=== PATIENT | male | born 1955 | race African-American/Black ===

== ENCOUNTER → 2017-01-31 | Outpatient (CLI) | payer MEDICARE, MEDICAID | END | disposition home or self-care (01) | LOC: RAD 08:42 | PROVIDERS: ATTEND Neurological Surgery | DX: M48.56XA Collapsed vertebra, not elsewhere classified, lumbar region, initial encounter for fracture (principal) | CPT/HCPCS: 72114 ==

== ENCOUNTER 2018-04-27 05:23 | Inpatient (IN) | payer MEDICARE, MEDICAID ==
[~2018-04-27] VITALS: Ht 182.9 cm; Wt 89.8 kg
[2018-04-27] VITALS (31 sets, daily range): BP systolic 112–169; BP diastolic 45–86
[2018-04-27] MEDS ORDERED: GELATIN SPONGE,ABSORBABLE 12-7MM SPONGE ONE ×2 (06:51→09:14)
[2018-04-27] MEDS ORDERED: THROMBIN (BOVINE) 5000 UNITS/VIAL TOP ONE ×2 (06:51→06:52)
[2018-04-27] MEDS ORDERED: BENA1TAB18 PO (06:52)
[2018-04-27] MEDS ORDERED: LIDOCAINE HCL/EPINEPHRINE 1%-EPI 1:100,000 20 ML VIAL ONE (06:52)
[2018-04-27] MEDS ORDERED: GLIP1TAB5 PO (06:52)
[2018-04-27] MEDS ORDERED: HYDR-3282 PO (06:52)
[2018-04-27] MEDS ORDERED: BACITRACIN 50,000 UNITS/VIAL ONE (06:52)
[2018-04-27] MEDS ORDERED: ASPI-1159 PO (06:52)
[2018-04-27] MEDS ORDERED: HYDR-4009 PO (06:52)
[2018-04-27] MEDS ORDERED: MIDAZOLAM HCL 2 MG/2 ML VIAL ONE (06:57)
[2018-04-27] MEDS ORDERED: ROCURONIUM BROMIDE 10MG/ML VIAL 5ML IV ONE (06:57)
[2018-04-27] MEDS ORDERED: NEOSTIGMINE METHYLSULFATE 1MG/ML 10 ML VIAL ONE (06:57)
[2018-04-27] MEDS ORDERED: FENTANYL CITRATE/PF 50MCG/ML 5ML VIAL ONE (06:57)
[2018-04-27] MEDS ORDERED: PROPOFOL 200MG/20ML VIAL IV ONE (06:57)
[2018-04-27] MEDS ORDERED: GLYCOPYRROLATE 0.2 MG/ML 2ML VIAL ONE (07:00)
[2018-04-27] MEDS: LACTATED RINGERS 1,000 ML IV SCH ×2 (07:17→19:52)
[2018-04-27] MEDS ORDERED: ACETAMINOPHEN 325MG TABLET PO PRN (07:45)
[2018-04-27] MEDS ORDERED: ONDANSETRON HCL 4MG/2ML INJ IV PRN ×2 (07:45→09:45)
[2018-04-27] MEDS ORDERED: HYDRALAZINE 20MG/ML VIAL ONE (08:14)
[2018-04-27] MEDS ORDERED: VECURONIUM BROMIDE 10 MG/VIAL IV ONE (08:25)
[2018-04-27] MEDS ORDERED: LABETALOL HCL 5MG/ML VIAL 20ML IV ONE (09:30)
[2018-04-27] MEDS ORDERED: MEPERIDINE HCL/PF 25MG/ML CPJ IV PRN (09:45)
[2018-04-27] MEDS ORDERED: HYDROMORPHONE HCL/PF 2MG/ML CPJ IV PRN (09:45)
[2018-04-27] MEDS ORDERED: FENTANYL CITRATE/PF 50MCG/ML 2ML VIAL IV PRN (09:45)
[2018-04-27] MEDS ORDERED: MORPHINE SULFATE 4 MG/ML CPJ (NOT FOR IM USE) IV PRN (09:45)
[2018-04-27] MEDS ORDERED: DEXTROSE 50% WATER 50ML SYRINGE IV PRN (11:00)
[2018-04-27] MEDS ORDERED: BISACODYL 5MG TABLET PO PRN (11:00)
[2018-04-27] MEDS ORDERED: DIPHENHYDRAMINE INJ IV PRN (11:15)
[2018-04-27] MEDS ORDERED: PANTOPRAZOLE SODIUM 40 MG/VIAL IV NR (11:15)
[2018-04-27] MEDS ORDERED: NALOXONE INJ IV PRN (11:15)
[2018-04-27] MEDS: HYDROMORPHONE PCA 10MG/50ML IV PRN (11:24)
[2018-04-27] MEDS: DEXT 5%/LACTATED RINGERS 1,000 ML IV SCH ×3 (11:25→23:27)
[2018-04-27] MEDS: BLOOD SUGAR DIAGNOSTIC STRIP TEST SCH ×3 (11:25→21:00)
[2018-04-27] MEDS ORDERED: IPRATROPIUM/ALBUTEROL 0.5-3(2.5)MG/3ML NEB HHN PRN (11:30)
[2018-04-27] MEDS ORDERED: NICOTINE 21MG PATCH TD SCH (11:30)
[2018-04-27] MEDS: ONDANSETRON INJ IV PRN ×2 (11:55→23:26)
[2018-04-27] MEDS: INSULIN LISPRO 100 UNITS/ML SUBCUT SCH ×3 (11:59→22:14)
[2018-04-27] MEDS ORDERED: NICARDIPINE 100 MG in SODIUM CHLORIDE 0.9% 60 ML IV PRN (12:00)
[2018-04-27] MEDS: IPRATROPIUM/ALBUTEROL 0.5-3(2.5)MG/3ML NEB HHN SCH ×2 (13:55→20:55)
[2018-04-27] MEDS ORDERED: CEFAZOLIN 1000MG PREMIX 50 ML IV SCH ×3 (14:00→19:00)
[2018-04-27] MEDS ORDERED: CEFAZOLIN SODIUM 1000MG/VIAL IV SCH (14:00)
[2018-04-27] MEDS: CEFAZOLIN 1000MG PREMIX 50 ML IV SCH (19:52)
[2018-04-28] VITALS (47 sets, daily range): BP systolic 100–167; BP diastolic 41–108
[2018-04-28] MEDS: IPRATROPIUM/ALBUTEROL 0.5-3(2.5)MG/3ML NEB HHN SCH ×4 (01:19→19:55)
[2018-04-28] MEDS: CEFAZOLIN 1000MG PREMIX 50 ML IV SCH ×3 (02:48→18:16)
[2018-04-28 05:34] LABS: CHLORIDE 100 mEq/L (98-107)
[2018-04-28 05:48] LABS: HEMATOCRIT. 32.4 % (42.0-52.0); HEMOGLOBIN. 10.6 g/dL (14.0-18.0); MEAN CORPUSCULAR HEMOGLOBIN 28.2 pg (28.0-32.0); MEAN CORPUSCULAR VOLUME 86.1 fL (80.0-94.0); MEAN PLATELET VOLUME 7.9 fl (7.4-10.4); PLATELET 417 x1000/uL (130-400); RED BLOOD CELL COUNT 3.77 mill/uL (4.7-6.1); RED CELL DISTRIBUTION WIDTH 13.9 % (11.6-14.6)
[2018-04-28] MEDS: BLOOD SUGAR DIAGNOSTIC STRIP TEST SCH ×4 (06:33→21:17)
[2018-04-28] MEDS: INSULIN LISPRO 100 UNITS/ML SUBCUT SCH ×4 (06:33→21:18)
[2018-04-28 08:08] LABS: PLATELET ESTIMATE SLIGHTLY INCREASED
[2018-04-28] MEDS: NICOTINE 21MG PATCH TD SCH (08:17)
[2018-04-28] MEDS: PANTOPRAZOLE SODIUM 40 MG/VIAL IV SCH (08:17)
[2018-04-28] MEDS: ONDANSETRON INJ IV PRN ×2 (08:17→18:54)
[2018-04-28] MEDS: DOCUSATE SODIUM 100MG CAPSULE PO SCH ×2 (08:17→16:54)
[2018-04-28] MEDS: HYDROMORPHONE PCA 10MG/50ML IV PRN (09:36)
[2018-04-28] MEDS: DEXT 5%/LACTATED RINGERS 1,000 ML IV SCH ×2 (11:51→21:18)
[2018-04-28] MEDS ORDERED: POTASSIUM CHLORIDE 20MEQ TABLET SR PO NR (15:00)
[2018-04-29] VITALS (28 sets, daily range): BP systolic 131–158; BP diastolic 62–94
[2018-04-29] MEDS: IPRATROPIUM/ALBUTEROL 0.5-3(2.5)MG/3ML NEB HHN SCH ×4 (01:44→21:33)
[2018-04-29] MEDS: CEFAZOLIN 1000MG PREMIX 50 ML IV SCH ×2 (02:10→11:00)
[2018-04-29 05:21] LABS: HEMATOCRIT. 31.6 % (42.0-52.0); HEMOGLOBIN. 10.4 g/dL (14.0-18.0); MEAN CORPUSCULAR HEMOGLOBIN 28.3 pg (28.0-32.0); MEAN CORPUSCULAR VOLUME 85.9 fL (80.0-94.0); MEAN PLATELET VOLUME 8.1 fl (7.4-10.4); PLATELET 390 x1000/uL (130-400); RED BLOOD CELL COUNT 3.67 mill/uL (4.7-6.1); RED CELL DISTRIBUTION WIDTH 14.3 % (11.6-14.6)
[2018-04-29 05:33] LABS: CHLORIDE 103 mEq/L (98-107)
[2018-04-29] MEDS: DEXT 5%/LACTATED RINGERS 1,000 ML IV SCH ×3 (05:47→15:45)
[2018-04-29] MEDS: BLOOD SUGAR DIAGNOSTIC STRIP TEST SCH ×4 (06:42→21:44)
[2018-04-29] MEDS: INSULIN LISPRO 100 UNITS/ML SUBCUT SCH ×4 (06:43→17:54)
[2018-04-29] MEDS: PANTOPRAZOLE SODIUM 40 MG/VIAL IV SCH (09:35)
[2018-04-29] MEDS: NICOTINE 21MG PATCH TD SCH (09:35)
[2018-04-29] MEDS: DOCUSATE SODIUM 100MG CAPSULE PO SCH ×2 (09:35→17:00)
[2018-04-29] MEDS ORDERED: POTASSIUM CHLORIDE 20MEQ TABLET SR PO NR (10:30)
[2018-04-29 11:30] LABS: PLATELET ESTIMATE NORMAL
[2018-04-29] MEDS ORDERED: ONDANSETRON HCL 4MG/2ML INJ IV PRN (13:15)
[2018-04-30] VITALS: BP 136/75
[2018-04-30] MEDS: INSULIN LISPRO 100 UNITS/ML SUBCUT SCH ×5 (00:14→21:00)
[2018-04-30] MEDS: DEXT 5%/LACTATED RINGERS 1,000 ML IV SCH ×2 (00:35→09:41)
[2018-04-30] MEDS: CEFAZOLIN 1000MG PREMIX 50 ML IV SCH (00:35)
[2018-04-30] MEDS: IPRATROPIUM/ALBUTEROL 0.5-3(2.5)MG/3ML NEB HHN SCH ×4 (02:30→21:41)
[2018-04-30 04:00] VITALS: BP 125/61
[2018-04-30] MEDS: BLOOD SUGAR DIAGNOSTIC STRIP TEST SCH ×4 (07:14→21:53)
[2018-04-30] MEDS ORDERED: BENA5TAB6 MT (07:40)
[2018-04-30 08:00] VITALS: BP 143/62
[2018-04-30] MEDS: DOCUSATE SODIUM 100MG CAPSULE PO SCH ×3 (09:00→17:00)
[2018-04-30] MEDS: NICOTINE 21MG PATCH TD SCH (09:34)
[2018-04-30 10:51] LABS: BASOPHILS % 0.5 % (0.0-2.0); EOSINOPHILS % 4.8 % (0.0-5.0); HEMATOCRIT. 29.4 % (42.0-52.0); HEMOGLOBIN. 9.8 g/dL (14.0-18.0); LYMPHOCYTES % 9.9 % (20.0-50.0); MEAN CORPUSCULAR HEMOGLOBIN 28.6 pg (28.0-32.0); MEAN CORPUSCULAR VOLUME 85.8 fL (80.0-94.0); MONOCYTES % 12.7 % (2.0-8.0); NEUTROPHILS % 72.1 % (40.0-76.0); PLATELET 391 x1000/uL (130-400); RED BLOOD CELL COUNT 3.43 mill/uL (4.7-6.1); RED CELL DISTRIBUTION WIDTH 14.6 % (11.6-14.6)
[2018-04-30 11:13] LABS: CHLORIDE 102 mEq/L (98-107)
[2018-04-30 12:00] VITALS: BP 189/57
[2018-04-30] MEDS: HYDROCODONE/APAP 7.5/325MG 1 TAB TABLET PO PRN (14:07)
[2018-04-30 16:00] VITALS: BP 144/60
[2018-04-30 20:00] VITALS: BP 139/79
[2018-05-01] VITALS: BP 110/60
[2018-05-01] MEDS: IPRATROPIUM/ALBUTEROL 0.5-3(2.5)MG/3ML NEB HHN SCH ×3 (01:56→15:40)
[2018-05-01] MEDS: HYDROCODONE/APAP 7.5/325MG 1 TAB TABLET PO PRN ×2 (03:21→08:53)
[2018-05-01 04:00] VITALS: BP 126/63
[2018-05-01 06:52] LABS: BASOPHILS % 0.8 % (0.0-2.0); EOSINOPHILS % 5.5 % (0.0-5.0); HEMOGLOBIN. 9.5 g/dL (14.0-18.0); LYMPHOCYTES % 15.9 % (20.0-50.0); MEAN CORPUSCULAR VOLUME 85.2 fL (80.0-94.0); MEAN PLATELET VOLUME 8.1 fl (7.4-10.4); MONOCYTES % 12.9 % (2.0-8.0); NEUTROPHILS % 64.9 % (40.0-76.0); PLATELET 431 x1000/uL (130-400); RED BLOOD CELL COUNT 3.29 mill/uL (4.7-6.1); RED CELL DISTRIBUTION WIDTH 14.1 % (11.6-14.6)
[2018-05-01] MEDS: BLOOD SUGAR DIAGNOSTIC STRIP TEST SCH ×2 (07:20→12:20)
[2018-05-01 08:00] VITALS: BP 147/73
[2018-05-01 08:04] LABS: CHLORIDE 102 mEq/L (98-107)
[2018-05-01] MEDS ORDERED: POTASSIUM CHLORIDE 20MEQ TABLET SR PO SCH ×2 (08:30)
[2018-05-01] MEDS: DOCUSATE SODIUM 100MG CAPSULE PO SCH (08:54)
[2018-05-01] MEDS: NICOTINE 21MG PATCH TD SCH (08:54)
[2018-05-01] MEDS: INSULIN LISPRO 100 UNITS/ML SUBCUT SCH ×2 (09:02→12:37)
[2018-05-01 12:00] VITALS: BP 132/62
[2018-05-01 15:43] VITALS: BP 132/62
== END 2018-05-01 16:05 | DRG 453 ==
LOC: OR 05:23 → MICUNO 05:24 → 6EST 04-29 12:18
PROVIDERS: ADMIT Internal Medicine; ATTEND Internal Medicine
PROC: 0SG0071 Fusion of Lumbar Vertebral Joint with Autologous Tissue Substitute, Posterior Approach, Posterior Column, Open Approach (ICD-10-PCS; principal; 2018-04-27)
PROC: 0SG00A0 Fusion of Lumbar Vertebral Joint with Interbody Fusion Device, Anterior Approach, Anterior Column, Open Approach (ICD-10-PCS; 2018-04-27)
PROC: 0SP004Z Removal of Internal Fixation Device from Lumbar Vertebral Joint, Open Approach (ICD-10-PCS; 2018-04-27)
PROC: 0ST20ZZ Resection of Lumbar Vertebral Disc, Open Approach (ICD-10-PCS; 2018-04-27)
PROC: 01NB0ZZ Release Lumbar Nerve, Open Approach (ICD-10-PCS; 2018-04-27)
DX: M47.26 Other spondylosis with radiculopathy, lumbar region (principal); R53.2 Functional quadriplegia; J84.9 Interstitial pulmonary disease, unspecified; E44.0 Moderate protein-calorie malnutrition; M48.061 Spinal stenosis, lumbar region without neurogenic claudication; E11.9 Type 2 diabetes mellitus without complications; I10 Essential (primary) hypertension; D64.9 Anemia, unspecified; E87.6 Hypokalemia; M43.16 Spondylolisthesis, lumbar region; G89.4 Chronic pain syndrome; D72.829 Elevated white blood cell count, unspecified; F17.210 Nicotine dependence, cigarettes, uncomplicated; M77.30 Calcaneal spur, unspecified foot; Z82.49 Family history of ischemic heart disease and other diseases of the circulatory system; Z83.3 Family history of diabetes mellitus; Z88.8 Allergy status to other drugs, medicaments and biological substances; Z90.49 Acquired absence of other specified parts of digestive tract; Z68.26 Body mass index [BMI] 26.0-26.9, adult; Z80.9 Family history of malignant neoplasm, unspecified; Z98.1 Arthrodesis status
CPT/HCPCS: 36415; 72100; 80048; 82962; 83735; 86850; 86900; 88300; 88304; 88311; 94640; 95863; 95925; 95926; 97116; 97163; 97166; 97530; 97535; 97760; C1713; C9113; J0360; J0690; J1170; J1815; J2250; J2405; J2704; J2710; J3010; J3490; J7121; J7620

== ENCOUNTER 2018-05-01 16:59 | Inpatient (IN) | payer MEDICARE, MEDICAID ==
[~2018-05-01] VITALS: Ht 182.9 cm; Wt 83.9 kg
[2018-05-01 16:20] VITALS: BP 140/70
[~2018-05-01 16:59] MED LIST: ASPI-1159 PO; BENA1TAB18 PO; BENA5TAB6 MT; GLIP1TAB5 PO; HYDR-3282 PO; HYDR-4009 PO
[2018-05-01] MEDS ORDERED: DEXTROSE 50% WATER 50ML SYRINGE IV PRN (17:45)
[2018-05-01] MEDS ORDERED: ONDANSETRON HCL 4MG TABLET PO PRN (17:45)
[2018-05-01] MEDS ORDERED: DIPHENHYDRAMINE 25MG CAPSULE PO PRN (17:45)
[2018-05-01] MEDS ORDERED: IPRATROPIUM/ALBUTEROL 0.5-3(2.5)MG/3ML NEB HHN PRN (17:45)
[2018-05-01] MEDS ORDERED: BISACODYL 5MG TABLET PO PRN (17:45)
[2018-05-01 20:00] VITALS: BP_SYST 148; BP_SYST 170; BP_DIAS 78; BP_DIAS 88
[2018-05-01] MEDS: HYDROCODONE/APAP 7.5/325MG 1 TAB TABLET PO PRN (21:17)
[2018-05-01] MEDS: BLOOD SUGAR DIAGNOSTIC STRIP TEST SCH (21:18)
[2018-05-01] MEDS: INSULIN LISPRO 100 UNITS/ML SUBCUT SCH (21:44)
[2018-05-02] MEDS: IPRATROPIUM/ALBUTEROL 0.5-3(2.5)MG/3ML NEB HHN SCH ×4 (01:23→19:45)
[2018-05-02] MEDS: HYDROCODONE/APAP 7.5/325MG 1 TAB TABLET PO PRN ×4 (03:21→16:38)
[2018-05-02 07:13] LABS: BASOPHILS % 0.7 % (0.0-2.0); EOSINOPHILS % 5.4 % (0.0-5.0); HEMATOCRIT. 30.7 % (42.0-52.0); HEMOGLOBIN. 10.3 g/dL (14.0-18.0); LYMPHOCYTES % 15.7 % (20.0-50.0); MEAN CORPUSCULAR HEMOGLOBIN 28.6 pg (28.0-32.0); MEAN CORPUSCULAR VOLUME 85.3 fL (80.0-94.0); MEAN PLATELET VOLUME 7.9 fl (7.4-10.4); MONOCYTES % 14.1 % (2.0-8.0); NEUTROPHILS % 64.1 % (40.0-76.0); PLATELET 490 x1000/uL (130-400); RED BLOOD CELL COUNT 3.61 mill/uL (4.7-6.1); RED CELL DISTRIBUTION WIDTH 14.1 % (11.6-14.6)
[2018-05-02] MEDS: BLOOD SUGAR DIAGNOSTIC STRIP TEST SCH ×4 (07:17→21:02)
[2018-05-02] MEDS: INSULIN LISPRO 100 UNITS/ML SUBCUT SCH ×4 (07:17→21:02)
[2018-05-02 07:18] LABS: CHLORIDE 101 mEq/L (98-107)
[2018-05-02 08:00] VITALS: BP 120/63
[2018-05-02] MEDS: DOCUSATE SODIUM 100MG CAPSULE PO SCH ×2 (08:57→16:38)
[2018-05-02] MEDS: NICOTINE 21MG PATCH TD SCH (09:56)
[2018-05-02] MEDS ORDERED: POTASSIUM CHLORIDE 20MEQ TABLET SR PO NR (11:30)
[2018-05-02] MEDS ORDERED: LACTULOSE 20G/30ML UDC PO NR (12:00)
[2018-05-02] MEDS: LACTULOSE 20G/30ML UDC PO SCH ×3 (12:40→20:14)
[2018-05-02] MEDS: BENAZEPRIL 5MG TABLET PO SCH (13:58)
[2018-05-02] MEDS ORDERED: DOCUSATE SODIUM 100MG CAPSULE PO SCH (17:00)
[2018-05-02 20:00] VITALS: BP 121/70
[2018-05-02] MEDS: POLYETHYLENE GLYCOL 3350 (17GM) 1 DOSE PACK PO SCH (20:14)
[2018-05-02] MEDS ORDERED: NA PHOS,M-B/NA PHOS,DI-BA ENEMA 118ML PR PRN (23:15)
[2018-05-03] MEDS: HYDROCODONE/APAP 7.5/325MG 1 TAB TABLET PO PRN ×4 (00:05→22:35)
[2018-05-03] MEDS: IPRATROPIUM/ALBUTEROL 0.5-3(2.5)MG/3ML NEB HHN SCH ×2 (02:34→21:45)
[2018-05-03] MEDS: BLOOD SUGAR DIAGNOSTIC STRIP TEST SCH ×4 (06:28→21:09)
[2018-05-03] MEDS: INSULIN LISPRO 100 UNITS/ML SUBCUT SCH ×4 (06:30→22:16)
[2018-05-03 07:21] LABS: BASOPHILS % 0.6 % (0.0-2.0); EOSINOPHILS % 4.9 % (0.0-5.0); HEMATOCRIT. 29.6 % (42.0-52.0); LYMPHOCYTES % 15.8 % (20.0-50.0); MEAN CORPUSCULAR HEMOGLOBIN 28.5 pg (28.0-32.0); MEAN CORPUSCULAR VOLUME 84.7 fL (80.0-94.0); MEAN PLATELET VOLUME 7.9 fl (7.4-10.4); MONOCYTES % 14.8 % (2.0-8.0); NEUTROPHILS % 63.9 % (40.0-76.0); PLATELET 478 x1000/uL (130-400); RED CELL DISTRIBUTION WIDTH 14.1 % (11.6-14.6)
[2018-05-03 07:36] LABS: CHLORIDE 102 mEq/L (98-107)
[2018-05-03 07:49] LABS: TOTAL IRON BINDING CAPACITY 292 ug/dL (250-450)
[2018-05-03 07:50] LABS: FOLIC ACID (FOLATE) SERUM 15.4 ng/mL (>5.38)
[2018-05-03 07:59] LABS: PROSTRATE SPECIFIC AG TOTAL 0.84 ng/mL (0.0-4.0)
[2018-05-03 08:06] VITALS: BP 130/58
[2018-05-03] MEDS: DOCUSATE SODIUM 100MG CAPSULE PO SCH ×2 (09:02→16:23)
[2018-05-03] MEDS: NICOTINE 21MG PATCH TD SCH (09:03)
[2018-05-03] MEDS: BENAZEPRIL 5MG TABLET PO SCH (09:03)
[2018-05-03] MEDS: FERROUS SULFATE 325MG TABLET PO SCH ×2 (12:33→16:23)
[2018-05-03] MEDS ORDERED: POTASSIUM CHLORIDE 20MEQ TABLET SR PO SCH (14:30)
[2018-05-03 20:00] VITALS: BP 162/87
[2018-05-03] MEDS: POLYETHYLENE GLYCOL 3350 (17GM) 1 DOSE PACK PO SCH (22:18)
[2018-05-03] MEDS: IRON SUCROSE COMPLEX 100 MG in SODIUM CHLORIDE 0.9% 100 ML IV SCH (22:18)
[2018-05-04] MEDS: IPRATROPIUM/ALBUTEROL 0.5-3(2.5)MG/3ML NEB HHN SCH ×4 (02:54→22:18)
[2018-05-04] MEDS: BLOOD SUGAR DIAGNOSTIC STRIP TEST SCH ×4 (05:45→20:49)
[2018-05-04] MEDS: HYDROCODONE/APAP 7.5/325MG 1 TAB TABLET PO PRN ×3 (06:00→21:38)
[2018-05-04 06:51] LABS: BASOPHILS % 0.7 % (0.0-2.0); EOSINOPHILS % 6.6 % (0.0-5.0); HEMATOCRIT. 29.9 % (42.0-52.0); LYMPHOCYTES % 19.2 % (20.0-50.0); MEAN CORPUSCULAR HEMOGLOBIN 28.4 pg (28.0-32.0); MEAN CORPUSCULAR VOLUME 84.9 fL (80.0-94.0); MEAN PLATELET VOLUME 7.6 fl (7.4-10.4); MONOCYTES % 14.5 % (2.0-8.0); PLATELET 524 x1000/uL (130-400); RED BLOOD CELL COUNT 3.52 mill/uL (4.7-6.1); RED CELL DISTRIBUTION WIDTH 14.3 % (11.6-14.6)
[2018-05-04 07:03] LABS: CHLORIDE 101 mEq/L (98-107)
[2018-05-04 07:19] LABS: PHOSPHORUS 2.7 mg/dL (2.5-4.9)
[2018-05-04 08:00] VITALS: BP 159/72
[2018-05-04] MEDS: DOCUSATE SODIUM 100MG CAPSULE PO SCH ×2 (08:42→17:11)
[2018-05-04] MEDS: BENAZEPRIL 5MG TABLET PO SCH (08:42)
[2018-05-04] MEDS: NICOTINE 21MG PATCH TD SCH (08:43)
[2018-05-04] MEDS: INSULIN LISPRO 100 UNITS/ML SUBCUT SCH ×4 (08:51→22:45)
[2018-05-04] MEDS: LACTULOSE 20G/30ML UDC PO SCH ×3 (15:43→21:00)
[2018-05-04 20:00] VITALS: BP 152/62
[2018-05-04] MEDS: IRON SUCROSE COMPLEX 100 MG in SODIUM CHLORIDE 0.9% 100 ML IV SCH (20:49)
[2018-05-04] MEDS: POLYETHYLENE GLYCOL 3350 (17GM) 1 DOSE PACK PO SCH (21:00)
[2018-05-05] MEDS: ACETAMINOPHEN 325MG TABLET PO PRN ×2 (01:59→23:43)
[2018-05-05] MEDS: IPRATROPIUM/ALBUTEROL 0.5-3(2.5)MG/3ML NEB HHN SCH ×4 (03:00→21:25)
[2018-05-05] MEDS: HYDROCODONE/APAP 7.5/325MG 1 TAB TABLET PO PRN ×4 (03:28→21:18)
[2018-05-05] MEDS: BLOOD SUGAR DIAGNOSTIC STRIP TEST SCH ×4 (06:26→21:18)
[2018-05-05] MEDS: INSULIN LISPRO 100 UNITS/ML SUBCUT SCH ×4 (06:27→21:39)
[2018-05-05 08:00] VITALS: BP 167/87
[2018-05-05] MEDS: DOCUSATE SODIUM 100MG CAPSULE PO SCH ×3 (08:11→16:08)
[2018-05-05] MEDS: BENAZEPRIL 5MG TABLET PO SCH (08:12)
[2018-05-05] MEDS: NICOTINE 21MG PATCH TD SCH (08:13)
[2018-05-05] MEDS: CYCLOBENZAPRINE 10MG TABLET PO SCH (15:18)
[2018-05-05 20:00] VITALS: BP 162/66
[2018-05-05] MEDS: IRON SUCROSE COMPLEX 100 MG in SODIUM CHLORIDE 0.9% 100 ML IV SCH (21:17)
[2018-05-05] MEDS: POLYETHYLENE GLYCOL 3350 (17GM) 1 DOSE PACK PO SCH (21:18)
[2018-05-06] MEDS: IPRATROPIUM/ALBUTEROL 0.5-3(2.5)MG/3ML NEB HHN SCH ×4 (01:57→20:46)
[2018-05-06] MEDS: HYDROCODONE/APAP 7.5/325MG 1 TAB TABLET PO PRN ×4 (03:19→23:04)
[2018-05-06 07:04] LABS: BASOPHILS % 1.2 % (0.0-2.0); EOSINOPHILS % 6.5 % (0.0-5.0); HEMATOCRIT. 30.4 % (42.0-52.0); HEMOGLOBIN. 10.2 g/dL (14.0-18.0); LYMPHOCYTES % 18.9 % (20.0-50.0); MEAN CORPUSCULAR HEMOGLOBIN 28.7 pg (28.0-32.0); MEAN CORPUSCULAR VOLUME 85.8 fL (80.0-94.0); MEAN PLATELET VOLUME 7.5 fl (7.4-10.4); NEUTROPHILS % 62.4 % (40.0-76.0); PLATELET 598 x1000/uL (130-400); RED BLOOD CELL COUNT 3.54 mill/uL (4.7-6.1); RED CELL DISTRIBUTION WIDTH 14.3 % (11.6-14.6)
[2018-05-06] MEDS: BLOOD SUGAR DIAGNOSTIC STRIP TEST SCH ×3 (07:10→21:00)
[2018-05-06] MEDS: INSULIN LISPRO 100 UNITS/ML SUBCUT SCH ×3 (07:10→16:50)
[2018-05-06 07:15] LABS: CHLORIDE 102 mEq/L (98-107)
[2018-05-06 07:40] LABS: PHOSPHORUS 3.3 mg/dL (2.5-4.9)
[2018-05-06 08:00] VITALS: BP 156/85
[2018-05-06] MEDS: NICOTINE 21MG PATCH TD SCH (08:52)
[2018-05-06] MEDS: DOCUSATE SODIUM 100MG CAPSULE PO SCH ×2 (08:53→16:08)
[2018-05-06] MEDS: BENAZEPRIL 5MG TABLET PO SCH (08:53)
[2018-05-06] MEDS ORDERED: LACTULOSE 20G/30ML UDC PO NR (12:30)
[2018-05-06] MEDS: CYCLOBENZAPRINE 10MG TABLET PO SCH (15:07)
[2018-05-06] MEDS: LACTULOSE 20G/30ML UDC PO SCH ×2 (16:08→21:00)
[2018-05-06 20:00] VITALS: BP 110/56
[2018-05-06] MEDS: POLYETHYLENE GLYCOL 3350 (17GM) 1 DOSE PACK PO SCH (21:00)
[2018-05-06] MEDS: IRON SUCROSE COMPLEX 100 MG in SODIUM CHLORIDE 0.9% 100 ML IV SCH (22:46)
[2018-05-07] VITALS: BP 115/80
[2018-05-07] MEDS: INSULIN LISPRO 100 UNITS/ML SUBCUT SCH ×3 (00:10→12:48)
[2018-05-07] MEDS: IPRATROPIUM/ALBUTEROL 0.5-3(2.5)MG/3ML NEB HHN SCH ×3 (02:09→14:45)
[2018-05-07 04:00] VITALS: BP 120/70
[2018-05-07] MEDS: BLOOD SUGAR DIAGNOSTIC STRIP TEST SCH ×2 (06:53→11:15)
[2018-05-07 08:36] VITALS: BP 150/63
[2018-05-07] MEDS: LACTULOSE 20G/30ML UDC PO SCH (08:36)
[2018-05-07] MEDS: DOCUSATE SODIUM 100MG CAPSULE PO SCH (08:39)
[2018-05-07] MEDS: BENAZEPRIL 5MG TABLET PO SCH (08:40)
[2018-05-07] MEDS: HYDROCODONE/APAP 7.5/325MG 1 TAB TABLET PO PRN (08:40)
[2018-05-07] MEDS: NICOTINE 21MG PATCH TD SCH (08:43)
[2018-05-07 14:22] LABS: 25-HYDROXY VITAMIN D3 18 ng/mL (.)
[2018-05-07 14:23] VITALS: BP 150/63
== END 2018-05-07 15:10 | disposition home or self-care (01) | DRG 552 ==
PROVIDERS: ADMIT Physical Medicine & Rehabilitation Spinal Cord Injury Medicine; ATTEND Internal Medicine
DX: M48.061 Spinal stenosis, lumbar region without neurogenic claudication (principal); E46 Unspecified protein-calorie malnutrition; G82.20 Paraplegia, unspecified; M47.26 Other spondylosis with radiculopathy, lumbar region; D50.9 Iron deficiency anemia, unspecified; E11.9 Type 2 diabetes mellitus without complications; E87.6 Hypokalemia; F17.210 Nicotine dependence, cigarettes, uncomplicated; G89.4 Chronic pain syndrome; H54.7 Unspecified visual loss; I10 Essential (primary) hypertension; M54.2 Cervicalgia; R20.0 Anesthesia of skin; R20.2 Paresthesia of skin; R26.9 Unspecified abnormalities of gait and mobility; M77.30 Calcaneal spur, unspecified foot; Z88.8 Allergy status to other drugs, medicaments and biological substances; Z90.49 Acquired absence of other specified parts of digestive tract; Z71.6 Tobacco abuse counseling; Z79.899 Other long term (current) drug therapy; Z79.82 Long term (current) use of aspirin; Z68.25 Body mass index [BMI] 25.0-25.9, adult
CPT/HCPCS: 36415; 80048; 82306; 82607; 82728; 82746; 82962; 83540; 83550; 83735; 84100; 84134; 84153; 84443; 93970; 94640; 97116; 97162; 97167; 97530; 97535; C1893; J1815; J7040; J7050; J7620; G0103

== ENCOUNTER → 2019-12-20 | Outpatient (CLI) | payer MEDICARE, MEDICAID ==
[~2019-12-20] MED LIST changes: +AMLO10TA80 PO; -ASPI-1159 PO; +ASPI-1497 PO; +BENA40TA9 PO; +DOCU100T PO; +FERR220S6 PO; -HYDR-3282 PO; -HYDR-4009 PO
== END | disposition home or self-care (01) ==
LOC: LAB 10:14
PROVIDERS: ATTEND Orthopaedic Surgery
DX: Z01.812 Encounter for preprocedural laboratory examination (principal); Z20.828 Contact with and (suspected) exposure to other viral communicable diseases; M65.311 Trigger thumb, right thumb
CPT/HCPCS: 87635

== ENCOUNTER → 2019-12-23 | Day surgery (SDC) | payer MEDICARE, MEDICAID ==
[~2019-12-23] VITALS: Ht 180.3 cm; Wt 81.6 kg
[~2019-12-23] MED LIST changes: +BACITRACIN 50,000 UNITS/VIAL ONE; -BENA5TAB6 MT; +BUPIVACAINE HCL/EPINEPHRINE/PF 0.5%/0.0005 10ML ONE; +BUPIVACAINE HCL/PF 0.25% (2.5MG/ML) 10ML ONE; +CEFAZOLIN SODIUM 1000MG/VIAL ONE; +FENTANYL CITRATE/PF 50MCG/ML 2ML VIAL ONE; +GLYCOPYRROLATE 0.2 MG/ML 2ML VIAL ONE; +HYDROCODONE/ACETAMINOPHEN 10/325MG TABLET PO PRN; +HYDROMORPHONE HCL/PF 2MG/ML CPJ IV PRN; +LABETALOL HCL 5MG/ML VIAL 20ML IV ONE; +LIDOCAINE HCL 1% 20ML VIAL (Pyxis) INJ ONE; +MEPERIDINE HCL/PF 25MG/ML CPJ IV PRN; +METOCLOPRAMIDE HCL 10MG/2ML VIAL ONE; +MIDAZOLAM HCL 2 MG/2 ML VIAL ONE; +MORPHINE SULFATE 2 MG/ML CPJ (NOT FOR IM USE) IV PRN; +NORMAL SALINE 0.9% 10 ML SYR ONE; +ONDANSETRON HCL 4MG/2ML INJ IV PRN; +ONDANSETRON HCL 4MG/2ML INJ ONE; +PROPOFOL 200MG/20ML VIAL IV ONE; +SKIN ADHESIVE 0.7 GM EA TOP ONE; +SODIUM CHLORIDE 0.9% 1,000 ML IV ONE; +SODIUM CHLORIDE 0.9% 1,000 ML IV SCH; +SUCCINYLCHOLINE CHLORIDE 200MG/10ML IV ONE
== END | disposition home or self-care (01) ==
LOC: OR 06:01
PROVIDERS: ATTEND Orthopaedic Surgery
DX: M65.311 Trigger thumb, right thumb (principal); E11.9 Type 2 diabetes mellitus without complications; I10 Essential (primary) hypertension; D64.9 Anemia, unspecified; M79.644 Pain in right finger(s); M65.9 Synovitis and tenosynovitis, unspecified; R53.81 Other malaise; Z79.84 Long term (current) use of oral hypoglycemic drugs; Z79.82 Long term (current) use of aspirin; Z79.899 Other long term (current) drug therapy; Z90.49 Acquired absence of other specified parts of digestive tract; Z88.8 Allergy status to other drugs, medicaments and biological substances; Z82.49 Family history of ischemic heart disease and other diseases of the circulatory system
CPT/HCPCS: 26055; 82962; 93005; J0330; J0690; J2250; J2405; J2704; J2765; J3010; J3490; J0171

== ENCOUNTER → 2020-05-16 | Outpatient (CLI) | payer MEDICARE, MEDICAID ==
[~2020-05-16] MED LIST changes: -BACITRACIN 50,000 UNITS/VIAL ONE; -BENA1TAB18 PO; -BUPIVACAINE HCL/EPINEPHRINE/PF 0.5%/0.0005 10ML ONE; -BUPIVACAINE HCL/PF 0.25% (2.5MG/ML) 10ML ONE; -CEFAZOLIN SODIUM 1000MG/VIAL ONE; -FENTANYL CITRATE/PF 50MCG/ML 2ML VIAL ONE; -GLYCOPYRROLATE 0.2 MG/ML 2ML VIAL ONE; -HYDROCODONE/ACETAMINOPHEN 10/325MG TABLET PO PRN; -HYDROMORPHONE HCL/PF 2MG/ML CPJ IV PRN; -LABETALOL HCL 5MG/ML VIAL 20ML IV ONE; -LIDOCAINE HCL 1% 20ML VIAL (Pyxis) INJ ONE; -MEPERIDINE HCL/PF 25MG/ML CPJ IV PRN; -METOCLOPRAMIDE HCL 10MG/2ML VIAL ONE; -MIDAZOLAM HCL 2 MG/2 ML VIAL ONE; -MORPHINE SULFATE 2 MG/ML CPJ (NOT FOR IM USE) IV PRN; -NORMAL SALINE 0.9% 10 ML SYR ONE; -ONDANSETRON HCL 4MG/2ML INJ IV PRN; -ONDANSETRON HCL 4MG/2ML INJ ONE; -PROPOFOL 200MG/20ML VIAL IV ONE; -SKIN ADHESIVE 0.7 GM EA TOP ONE; -SODIUM CHLORIDE 0.9% 1,000 ML IV ONE; -SODIUM CHLORIDE 0.9% 1,000 ML IV SCH; -SUCCINYLCHOLINE CHLORIDE 200MG/10ML IV ONE
== END | disposition home or self-care (01) ==
LOC: MRI 09:33
PROVIDERS: ATTEND Neurological Surgery
DX: M47.816 Spondylosis without myelopathy or radiculopathy, lumbar region (principal); M48.061 Spinal stenosis, lumbar region without neurogenic claudication; I77.819 Aortic ectasia, unspecified site
CPT/HCPCS: 72148

== ENCOUNTER → 2021-09-27 | Day surgery (SDC) | payer MEDICARE, MEDICAID ==
[~2021-09-27] MED LIST changes: +ACETAMINOPHEN 325MG TABLET PO PRN; +ATROPINE SULFATE 1MG/10ML SYR IV PRN; +B12/1TAB MT; -BENA40TA9 PO; +BENA40TA91 PO; +CYCL25PO15 MT; +DAPA10TA PO; +FENTANYL CITRATE/PF 50MCG/ML 2ML VIAL ONE; +GABA-533 PO; +GLIP5TAB12 PO; +HEPARIN 1000 UNITS/ML 10ML ONE; +HYDR-4009 PO; +INSU100I24 SQ; +IODIXANOL 320MG/ML 100 ML BOTTLE IV ONE; +LIDOCAINE HCL/PF 1% 10 MG/ML 5ML VIAL ONE; +MIDAZOLAM HCL 2 MG/2 ML VIAL ONE; +MULT-1234 MT; +NEBI5TAB3 MT; +ONDANSETRON HCL 4MG/2ML INJ IV PRN; +TELM80TA8 PO; +TRIA1TAB94 MT
[2021-09-27 08:59] LABS: CHLORIDE 107 mEq/L (98-107)
== END | disposition home or self-care (01) ==
LOC: CCL 06:13
PROVIDERS: ATTEND Specialist
DX: I25.10 Atherosclerotic heart disease of native coronary artery without angina pectoris (principal); I10 Essential (primary) hypertension; E11.9 Type 2 diabetes mellitus without complications; E78.5 Hyperlipidemia, unspecified; I42.9 Cardiomyopathy, unspecified; Z87.891 Personal history of nicotine dependence; Z79.899 Other long term (current) drug therapy; Z98.890 Other specified postprocedural states; Z79.84 Long term (current) use of oral hypoglycemic drugs; Z79.82 Long term (current) use of aspirin; Z20.822 Contact with and (suspected) exposure to COVID-19
CPT/HCPCS: 36415; 80053; 85347; 87426; 93458; 93571; C1769; C1887; C1893; C9803; J1644; J2250; J3010; J3490; Q9967; 99152; 99153; G0500

== ENCOUNTER 2021-11-22 12:03 | Inpatient (IN) | payer MEDICARE, MEDICAID ==
[~2021-11-22] VITALS: Ht 180.3 cm; Wt 95.7 kg
[~2021-11-22 12:03] MED LIST changes: -ACETAMINOPHEN 325MG TABLET PO PRN; -ATROPINE SULFATE 1MG/10ML SYR IV PRN; -FENTANYL CITRATE/PF 50MCG/ML 2ML VIAL ONE; -HEPARIN 1000 UNITS/ML 10ML ONE; -IODIXANOL 320MG/ML 100 ML BOTTLE IV ONE; -LIDOCAINE HCL/PF 1% 10 MG/ML 5ML VIAL ONE; -MIDAZOLAM HCL 2 MG/2 ML VIAL ONE; -ONDANSETRON HCL 4MG/2ML INJ IV PRN
[2021-11-22 13:59] LABS: CHLORIDE 104 mEq/L (98-107)
[2021-11-22 14:03] LABS: BASOPHILS % 0.8 % (0.0-2.0); EOSINOPHILS % 1.1 % (0.0-5.0); HEMOGLOBIN. 7.2 g/dL (14.0-18.0); LYMPHOCYTES % 13.7 % (20.0-50.0); MEAN CORPUSCULAR HEMOGLOBIN 24.9 pg (28.0-32.0); MEAN CORPUSCULAR VOLUME 79.9 fL (80.0-94.0); MEAN PLATELET VOLUME 7.5 fl (7.4-10.4); MONOCYTES % 9.2 % (2.0-8.0); NEUTROPHILS % 75.2 % (40.0-76.0); PLATELET 540 x1000/uL (130-400); RED BLOOD CELL COUNT 2.88 mill/uL (4.7-6.1); RED CELL DISTRIBUTION WIDTH 19.9 % (11.6-14.6)
[2021-11-22 14:26] LABS: PROTHROMBIN TIME 10.4 sec (9.6-11.0)
[2021-11-22] MEDS ORDERED: SODIUM CHLORIDE 0.9% 1,000 ML IV NR (14:30)
[2021-11-22] MEDS ORDERED: PANTOPRAZOLE SODIUM 40 MG/VIAL IV ONE (14:45)
[2021-11-22] MEDS ORDERED: ONDANSETRON HCL 4MG/2ML INJ IV ONE (14:45)
[2021-11-22 20:00] VITALS: BP 125/59
[2021-11-22] MEDS ORDERED: ACETAMINOPHEN 325MG TABLET PO NR (20:30)
[2021-11-22] MEDS ORDERED: DIPHENHYDRAMINE 25MG CAPSULE PO NR (20:30)
[2021-11-23] VITALS (16 sets, daily range): BP systolic 109–136; BP diastolic 48–87
[2021-11-23] MEDS ORDERED: ONDANSETRON HCL 4MG/2ML INJ IV PRN (01:30)
[2021-11-23] MEDS ORDERED: DEXTROSE 50% WATER 50ML SYRINGE IV PRN ×2 (01:30→05:30)
[2021-11-23] MEDS ORDERED: ACETAMINOPHEN 325MG TABLET PO PRN (01:30)
[2021-11-23] MEDS ORDERED: CLONIDINE 0.1MG TABLET PO PRN (01:30)
[2021-11-23] MEDS ORDERED: MAGNESIUM/ALUMINUM HYDROXIDE/SIMETHICONE 30ML UDC PO PRN (01:30)
[2021-11-23] MEDS ORDERED: ZOLPIDEM TARTRATE 5MG TABLET PO PRN (01:30)
[2021-11-23] MEDS ORDERED: DIPHENHYDRAMINE 50MG/ML VIAL IV PRN (01:30)
[2021-11-23 02:02] LABS: TOTAL IRON BINDING CAPACITY 440 ug/dL (250-450)
[2021-11-23 07:21] LABS: HEMATOCRIT 23.6 % (42.0-52.0); HEMOGLOBIN 7.5 g/dL (14.0-18.0); MEAN CORPUSCULAR HEMOGLOBIN 25.4 pg (28.0-32.0); MEAN CORPUSCULAR VOLUME 79.6 fL (80.0-94.0); PLATELET 427 x1000/uL (130-400); RED BLOOD CELL COUNT 2.97 mill/uL (4.7-6.1); RED CELL DISTRIBUTION WIDTH 18.9 % (11.6-14.6)
[2021-11-23] MEDS: BLOOD SUGAR DIAGNOSTIC STRIP TEST SCH ×3 (07:40→21:00)
[2021-11-23] MEDS: INSULIN LISPRO 100 UNITS/ML SUBCUT SCH ×6 (08:10→22:12)
[2021-11-23] MEDS: IRON SUCROSE COMPLEX 100 MG/5 ML ML IV SCH (09:37)
[2021-11-23] MEDS: PANTOPRAZOLE SODIUM 40 MG/VIAL IV SCH (12:47)
[2021-11-23] MEDS ORDERED: IRON SUCROSE COMPLEX 100 MG/5 ML ML IV SCH (16:00)
[2021-11-23 17:48] LABS: FOLIC ACID (FOLATE) SERUM 15.7 ng/mL (>5.38)
[2021-11-23 21:01] LABS: HEMATOCRIT 26.1 % (42.0-52.0); HEMOGLOBIN 8.3 g/dL (14.0-18.0)
[2021-11-23] MEDS: SODIUM CHLORIDE 0.9% INJ 3ML FLUSH IVF SCH (22:13)
[2021-11-24] VITALS: BP 130/62
[2021-11-24 04:00] VITALS: BP 128/67
[2021-11-24] MEDS: BLOOD SUGAR DIAGNOSTIC STRIP TEST SCH ×4 (05:51→21:05)
[2021-11-24] MEDS: INSULIN LISPRO 100 UNITS/ML SUBCUT SCH ×4 (06:02→21:00)
[2021-11-24] MEDS: SODIUM CHLORIDE 0.9% INJ 3ML FLUSH IVF SCH ×3 (06:07→20:46)
[2021-11-24] MEDS: PANTOPRAZOLE SODIUM 40 MG/VIAL IV SCH (08:20)
[2021-11-24] MEDS: IRON SUCROSE COMPLEX 100 MG/5 ML ML IV SCH (08:21)
[2021-11-24] MEDS: ACETAMINOPHEN 325MG TABLET PO PRN ×2 (08:22→20:45)
[2021-11-24 10:17] LABS: BASOPHILS % 0.8 % (0.0-2.0); EOSINOPHILS % 3.4 % (0.0-5.0); HEMATOCRIT. 28.8 % (42.0-52.0); HEMOGLOBIN. 9.1 g/dL (14.0-18.0); LYMPHOCYTES % 15.6 % (20.0-50.0); MEAN CORPUSCULAR HEMOGLOBIN 25.6 pg (28.0-32.0); MEAN CORPUSCULAR VOLUME 80.8 fL (80.0-94.0); MEAN PLATELET VOLUME 7.6 fl (7.4-10.4); MONOCYTES % 10.5 % (2.0-8.0); NEUTROPHILS % 69.7 % (40.0-76.0); PLATELET 468 x1000/uL (130-400); RED BLOOD CELL COUNT 3.57 mill/uL (4.7-6.1); RED CELL DISTRIBUTION WIDTH 18.4 % (11.6-14.6)
[2021-11-24 10:24] LABS: CHLORIDE 104 mEq/L (98-107)
[2021-11-24 12:00] VITALS: BP 128/64
[2021-11-24 12:35] LABS: *AMPHETAMINES SCREEN URINE NEGATIVE (NEGATIVE); *BARBITURATES SCREEN URINE NEGATIVE (NEGATIVE); *BENZODIAZEPINES SCREEN URINE NEGATIVE (NEGATIVE); *COCAINE SCREEN URINE NEGATIVE (NEGATIVE); CANNABINOID URINE SCREEN PRESUMTIVE POSITIVE (NEGATIVE); METHADONE URINE SCREEN NEGATIVE (NEGATIVE); OPIATES URINE SCREEN NEGATIVE (NEGATIVE); PHENCYCLIDINE URINE SCREEN NEGATIVE (NEGATIVE)
[2021-11-24 16:00] VITALS: BP 114/78
[2021-11-24] MEDS: DOCUSATE SODIUM 100MG CAPSULE PO SCH (18:50)
[2021-11-24 20:00] VITALS: BP 120/78
[2021-11-24] MEDS: SODIUM CHLORIDE 0.9% 1,000 ML IV SCH (20:45)
[2021-11-25] VITALS: BP 130/80
[2021-11-25 04:00] VITALS: BP 155/75
[2021-11-25] MEDS: BLOOD SUGAR DIAGNOSTIC STRIP TEST SCH ×2 (05:39→12:11)
[2021-11-25] MEDS: INSULIN LISPRO 100 UNITS/ML SUBCUT SCH ×2 (05:39→13:11)
[2021-11-25] MEDS: SODIUM CHLORIDE 0.9% INJ 3ML FLUSH IVF SCH ×2 (05:40→13:36)
[2021-11-25 08:00] VITALS: BP 153/71
[2021-11-25] MEDS ORDERED: IRON SUCROSE COMPLEX 100 MG/5 ML ML IV SCH ×2 (09:00→13:00)
[2021-11-25] MEDS: PANTOPRAZOLE SODIUM 40 MG/VIAL IV SCH (09:10)
[2021-11-25] MEDS: DOCUSATE SODIUM 100MG CAPSULE PO SCH (09:10)
[2021-11-25] MEDS: SODIUM CHLORIDE 0.9% 1,000 ML IV SCH (09:11)
[2021-11-25 12:00] VITALS: BP 116/80
[2021-11-25 12:06] LABS: HEMATOCRIT 30.3 % (42.0-52.0); HEMOGLOBIN 9.4 g/dL (14.0-18.0); MEAN CORPUSCULAR HEMOGLOBIN 25.7 pg (28.0-32.0); MEAN CORPUSCULAR VOLUME 82.8 fL (80.0-94.0); PLATELET 504 x1000/uL (130-400); RED BLOOD CELL COUNT 3.66 mill/uL (4.7-6.1); RED CELL DISTRIBUTION WIDTH 18.6 % (11.6-14.6)
[2021-11-25 15:22] VITALS: BP 116/80
== END 2021-11-25 16:50 | disposition home or self-care (01) | DRG 812 ==
LOC: ER 12:03 → ENRESERV 17:40 → 7WST 19:02
PROVIDERS: ADMIT Internal Medicine; ATTEND Internal Medicine
PROC: 30233N1 Transfusion of Nonautologous Red Blood Cells into Peripheral Vein, Percutaneous Approach (ICD-10-PCS; principal; 2021-11-23)
DX: D50.9 Iron deficiency anemia, unspecified (principal); K64.9 Unspecified hemorrhoids; E11.9 Type 2 diabetes mellitus without complications; I10 Essential (primary) hypertension; M47.9 Spondylosis, unspecified; D75.839 Thrombocytosis, unspecified; M48.02 Spinal stenosis, cervical region; G89.29 Other chronic pain; M48.061 Spinal stenosis, lumbar region without neurogenic claudication; F17.210 Nicotine dependence, cigarettes, uncomplicated; Z79.82 Long term (current) use of aspirin; Z90.49 Acquired absence of other specified parts of digestive tract; Z88.8 Allergy status to other drugs, medicaments and biological substances; Z79.899 Other long term (current) drug therapy
CPT/HCPCS: 36415; 80048; 80053; 80305; 82105; 82270; 82378; 82607; 82728; 82746; 82962; 83036; 83540; 83550; 85014; 85018; 85025; 85027; 85044; 86301; 86850; 86900; 86920; 93005; 99285; C9113; J1815; J2405; J7030; P9016

== ENCOUNTER 2022-04-18 15:05 | Emergency (ER) | payer MEDICARE, MEDICAID ==
[~2022-04-18] VITALS: Ht 180.3 cm; Wt 93.0 kg
[2022-04-18 15:32] VITALS: BP 132/83
[2022-04-18] MEDS ORDERED: FAMOTIDINE 20MG TABLET PO NR (19:00)
[2022-04-18 20:28] LABS: BASOPHILS % 0.7 % (0.0-2.0); HEMATOCRIT. 41.3 % (42.0-52.0); HEMOGLOBIN. 13.9 g/dL (14.0-18.0); LYMPHOCYTES % 21.8 % (20.0-50.0); MEAN CORPUSCULAR HEMOGLOBIN 30.3 pg (28.0-32.0); MEAN CORPUSCULAR VOLUME 89.6 fL (80.0-94.0); MEAN PLATELET VOLUME 7.5 fl (7.4-10.4); MONOCYTES % 8.8 % (2.0-8.0); NEUTROPHILS % 64.7 % (40.0-76.0); PLATELET 451 x1000/uL (130-400); RED CELL DISTRIBUTION WIDTH 14.7 % (11.6-14.6)
[2022-04-18 20:37] LABS: CHLORIDE 103 mEq/L (98-107)
[2022-04-18] MEDS ORDERED: FAMO-135 MT (21:39)
== END 2022-04-18 20:30 | disposition home or self-care (01) ==
LOC: ER 15:05
DX: R10.84 Generalized abdominal pain (principal); I10 Essential (primary) hypertension; E11.9 Type 2 diabetes mellitus without complications; D64.9 Anemia, unspecified; Z98.1 Arthrodesis status; Z79.82 Long term (current) use of aspirin; Z88.8 Allergy status to other drugs, medicaments and biological substances
CPT/HCPCS: 36415; 80048; 85025; 99283